=== PATIENT | male | born 1985 | race Caucasian/White ===

== ENCOUNTER 2024-05-06 19:21 | Emergency (ER) | payer MEDICAID, SELFPAY ==
--- NOTE | 2024-05-06 | ECG_ITS ---
Test Reason : cp Blood Pressure : */* mmHG Vent. Rate : 95 BPM Atrial Rate : 95 BPM P-R Int : 134 ms QRS Dur : 78 ms QT Int : 356 ms P-R-T Axes : 55 49 60 degrees QTcB Int : 447 ms Normal sinus rhythm Normal ECG No previous ECGs available Referred By: Generic ED Physician Electronically Signed By: Lex Meadows
[2024-05-06 19:27] VITALS: BP 128/72; PULSE 106; O2SAT 96
[2024-05-06 19:40] VITALS: BP 113/58; PULSE 97; RESP 18; TEMP 36.6; O2SAT 94
[2024-05-06 19:52] VITALS: BP 113/64; PULSE 89; RESP 14; O2SAT 94; BMI 26.1
[2024-05-06 20:12] VITALS: PULSE 96; RESP 18; O2SAT 96
[2024-05-06] MEDS: Albuterol Sulfate 5 MG, Albuterol Sulfate (0.083%) 2.5 MG 7.5 MG INHALE (20:12)
[2024-05-06 20:13] LABS: MANUAL DIFF FLAG NO
--- NOTE | 2024-05-06 20:14 | ED_ITS ---
HPI - SOB/Dyspnea General Chief Complaint: Dyspnea Stated Complaint: ASTHMA ATTACK, 91% RA PER EMS Time Seen by Provider: 05/06/24 19:40 Source: patient Mode of arrival: ambulatory Limitations: no limitations History of Present Illness ED Provider: HPI Narrative: Patient is from [place] with history of severe asthma goes to hospital almost 2- 3 times a week comes here as while at home all of a sudden noticed shortness a breath with wheezing took the treatment at home and EMS gave him another nebulizing treatment patient came here with obvious wheezing saturating 91% on room air Related Data Allergies Allergy/AdvReac Type Severity Reaction Status Date / Time aspirin Allergy Intermediate Rash Verified 05/06/24 20:00 Penicillins Allergy Intermediate Rash Verified 05/06/24 20:00 ketamine AdvReac Intermediate asthma Verified 05/06/24 20:00 ketorolac [From Toradol] AdvReac Intermediate asthma Verified 05/06/24 20:00 Review of Systems 2 Review of Systems: Yes all other systems are reviewed and are negative PMFSH Social History Social History Smoked in Last 30 Days: No Use of substances other than those prescribed or required for medical reasons: No Advance Directives: No Advance Directives Information Provided: No Physical Exam 2 Vital Signs: Vital Signs: Last Vital Signs Temp 97.9 F 05/06/24 22:38 Pulse 86 05/06/24 22:38 Resp 16 05/06/24 22:38 BP 113/58 L 05/06/24 22:38 Pulse Ox 97 05/06/24 22:38 O2 Del Method Room Air 05/06/24 22:38 BMI result Body Mass Index 26.1 Appearance: Alert. Oriented X3. Moderate respiratory distress Eyes: No pallor or icterus ENT: Pharynx normal. Oral Mucosa moist Neck: Normal inspection. Neck supple. CVS: Normal heart rate and rhythm. Pulses normal. Respiratory: Moderate respiratory distress. Equal air entry bilateral, bilateral wheezing no rales Abdomen: Soft and nontender. Bowel sounds are present, no mass palpable, no CVA tenderness Skin: Skin warm and dry. Normal skin color. Normal skin turgor. Extremities: No lower extremity edema. No calf tenderness Neuro: Oriented X 3. No motor deficit. Medications Administered Discontinued Medications Generic Name Dose Route Start Last Admin Trade Name Freq PRN Reason Stop Dose Admin Albuterol Sulfate 5 mg/ 7.5 mg 05/06/24 19:51 05/06/24 20:12 Albuterol Sulfate 2.5 mg INHALE 05/06/24 19:52 7.5 mg ONCE ONE Administration Magnesium Sulfate 2 gm in 50 mls @ 150 mls/hr 05/06/24 19:51 05/06/24 21:00 Magnesium Sulfate/H2o IV 05/06/24 20:10 Infused ONCE ONE Infusion Methylprednisolone Sodium Succinate 125 mg 05/06/24 19:51 05/06/24 20:33 Methylprednisolone Sod Succ 125 Mg/2 Ml Vial IVPUSH 05/06/24 19:52 125 mg ONCE ONE Administration Medical Decision Making Medical Decision Making [facility] Narrative: Patient has acute asthma attack improved after DuoNeb treatment Solu-Medrol and magnesium was given patient does have prednisone at home continue that at home discharge patient home saturating 96% at room air Differential Diagnosis Differential Diagnoses: The differential diagnosis associated with the presentation includes Lab Data [facility] Lab Attestation statement: I reviewed the patient's lab results. 05/06/24 20:10 05/06/24 20:10 Labs: Lab Results 05/06/24 Range/Units 20:10 WBC 6.9 (4.8-10.8) X10*3/uL RBC 3.67 L (4.60-5.80) X10*6/uL Hgb 9.6 L (14.0-18.0) g/dl Hct 29.9 L (42.0-52.0) % MCV 81.5 (80.0-98.0) fL MCH 26.2 L (27.0-33.0) pg MCHC 32.1 (31.0-36.0) g/dl RDW 14.6 (11.0-16.0) % Plt Count 223 (160-400) X10*3/uL MPV 9.3 L (9.4-12.4) fL Immature Gran % (Auto) 0.4 (0.0-0.4) % Neut % (Auto) 45.1 (45-73) % Lymph % (Auto) 31.8 (20-40) % [place] % (Auto) 9.3 (2-11) % Eos % (Auto) 12.5 H (0-4) % Baso % (Auto) 0.9 (0-2) % Lymph # (Auto) 2.2 (1.2-4.9) X10*3/uL [place] # (Auto) 0.6 (0.1-1.2) X10*3/uL Eos # (Auto) 0.9 H (0.0-0.4) X10*3/uL Baso # (Auto) 0.1 (0.0-0.2) X10*3/uL Abs Immat Gran (auto) 0.03 (0.00-0.03) X10*3/uL Absolute Neuts (auto) 3.1 (2.0-8.3) x10*3/uL Absolute Nucleated RBC 0.000 (0.0-0.012) X10*3/uL Nucleated RBC % (auto) 0.0 (0.0-0.2) /100WBC Sodium 142 (135-145) mmol/L Potassium 3.9 (3.3-5.1) mmol/L Chloride 109 H (96-108) mmol/L Carbon Dioxide 25 (22-29) mmol/L Anion Gap 12 (12-20) BUN 19 H (9-16) mg/dL Creatinine 0.90 (0.5-1.4) mg/dL Estim Creat Clear Calc 129.3 Estimated GFR > 60 Random Glucose 104 (60-115) mg/dL Calcium 8.6 (8.4-10.2) mg/dL Total Bilirubin 0.2 (0.0-1.0) mg/dL AST 23 (5-37) U/L ALT 44 H (0-40) U/L Alkaline Phosphatase 52 (39-117) U/L Total Protein 6.1 L (6.5-8.0) g/dL Albumin 3.5 (3.5-5.0) g/dL Discharge Plan Discharge Clinical Impression: Asthma with exacerbation Patient Disposition: Home, Self-Care Instructions: Asthma (ED) Additional Instructions: Continue to use your nebulizer and inhaler as advised Prednisone as prescribed Follow up with your PCP Interventions: ED Discharge Assessment Last Done: 05/06/24 22:38 Discharge Date/Time: 05/06/24 22:25 Print Language: Occitan
[2024-05-06 20:25] LABS: Basophils Absolute Auto 0.1 X10*3/uL (0.0-0.2); Basophils Percent Auto 0.9 % (0-2); Eosinophils Absolute Auto 0.9 X10*3/uL (0.0-0.4); Eosinophils Percent Auto 12.5 % (0-4); Hematocrit 29.9 % (42.0-52.0); Hemoglobin 9.6 g/dl (14.0-18.0); Imm Gran Abs Auto 0.03 X10*3/uL (0.00-0.03); Imm Gran Pct Auto 0.4 % (0.0-0.4); Lymphocytes Absolute Auto 2.2 X10*3/uL (1.2-4.9); Lymphocytes Percent Auto 31.8 % (20-40); Mean Corpuscular HGB Conc 32.1 g/dl (31.0-36.0); Mean Corpuscular Hemoglobin 26.2 pg (27.0-33.0); Mean Corpuscular Volume 81.5 fL (80.0-98.0); Mean Platelet Volume 9.3 fL (9.4-12.4); Monocytes Absolute Auto 0.6 X10*3/uL (0.1-1.2); Monocytes Percent Auto 9.3 % (2-11); Neutrophils Absolute Auto 3.1 x10*3/uL (2.0-8.3); Neutrophils Percent Auto 45.1 % (45-73); Platelet Count 223 X10*3/uL (160-400); Red Blood Count 3.67 X10*6/uL (4.60-5.80); Red Cell Distribution Width 14.6 % (11.0-16.0); White Blood Count 6.9 X10*3/uL (4.8-10.8)
[2024-05-06] MEDS: methylPREDNISolone Sod Succ 125 MG/2 ML VIAL IVPUSH (20:33)
[2024-05-06 20:34] LABS: Alanine Aminotransferase 44 U/L (0-40); Albumin Level 3.5 g/dL (3.5-5.0); Anion Gap 12 (12-20); Aspartate Amino Transferase 23 U/L (5-37); Bilirubin Total 0.2 mg/dL (0.0-1.0); Blood Urea Nitrogen 19 mg/dL (9-16); Calcium 8.6 mg/dL (8.4-10.2); Carbon Dioxide 25 mmol/L (22-29); Chloride 109 mmol/L (96-108); Creatinine Clr Calc Pharmacy 129.3; Estimated Glomerular Filt Rate > 60; Glucose Random 104 mg/dL (60-115); Potassium 3.9 mmol/L (3.3-5.1); Sodium 142 mmol/L (135-145); Total Protein 6.1 g/dL (6.5-8.0)
[2024-05-06] MEDS: Magnesium Sulfate/H2O 2 GM/50 ML PIGGYBACK IV (20:34)
[2024-05-06 21:03] LABS: Alkaline Phosphatase 52 U/L (39-117)
[2024-05-06 22:03] VITALS: BP 113/58; PULSE 86; RESP 16; TEMP 36.6; O2SAT 97
[2024-05-06 22:38] VITALS: BP 113/58; PULSE 86; RESP 16; TEMP 36.6; O2SAT 97
== END 2024-05-06 22:25 | disposition home or self-care (01) ==
PROVIDERS: Emergency Provider Internal Medicine
DX: J45.901 Unspecified asthma with (acute) exacerbation (principal)
CPT/HCPCS: 36415; 80053; 85025; 93005; 94640; 96365; 96375; 99285; J2919; J3475

== ENCOUNTER → 2024-05-06 19:37 | Outpatient (BNV) | payer MEDICAID, SELFPAY | PROVIDERS: Emergency Provider Internal Medicine; Visit Provider Internal Medicine Cardiovascular Disease | DX: R07.9 Chest pain, unspecified (principal) | CPT/HCPCS: 93010 ==

== ENCOUNTER 2024-05-08 19:37 | Emergency (ER) | payer MEDICAID, SELFPAY ==
--- NOTE | ~2024-05-08 | CT_ITS ---
CLINICAL HISTORY: Painless hematuria CT abdomen and pelvis with contrast Comparison: None Findings: There is partial visualization of a large hiatal hernia containing the majority of the stomach with partial visualization of a small amount of adjacent compressive left lower lobe atelectasis. The visualized portion of the right lung base appears clear. Gallstone identified within the gallbladder lumen. No CT evidence for acute cholecystitis. The solid organs are within normal limits. No hydronephrosis or hydroureter. Small nonobstructing right renal calculus present. No bowel obstruction, pneumoperitoneum, or pneumatosis. Moderate proximal colonic stool burden at the ascending colon. Small calcification identified within the prostate gland to the left of the midline. No bladder wall thickening. Normal appendix. No acute fracture visualized. IMPRESSION: 1. No acute inflammatory process identified within the abdomen or pelvis. 2. Small nonobstructing right renal calculus. No hydronephrosis. 3. Partial visualization of a large hiatal hernia containing the majority of the stomach. 4. Moderate proximal colonic stool burden. No bowel obstruction. 5. Cholelithiasis. No CT evidence for acute cholecystitis. This document has been electronically signed by: Sonny Ferreira MD on 05/09/2024 03:19:15
[2024-05-08 19:39] VITALS: BP 128/88; PULSE 88; O2SAT 95
[2024-05-08 20:02] VITALS: BP 112/59; PULSE 83; RESP 18; TEMP 37; O2SAT 97; BMI 26.5
--- NOTE | 2024-05-08 20:05 | ED_ITS ---
HPI - General Adult General Chief complaint: Urogenital-Male Stated complaint: blood in urine Time Seen by Provider: 05/09/24 01:57 Source: patient Mode of arrival: EMS Limitations: no limitations History of Present Illness ED Provider: Dr. Mauro Mobley HPI narrative: 38-year-old male with a history of asthma and kidney stones who presents emergency department for evaluation of painless hematuria. Patient states that on 05/06/2024 he had red colored urine. He states that the next day he then had dark urine with blood clots. He states that he had a pressure-like sensation when he Peed and urinary frequency but no dysuria. He states he was not been sexually active and he had no penile discharge. Patient states he was had kidney stones in the past but has not experienced any flank or abdominal pain with his hematuria. The patient denied fever chills night sweats or weight loss. He states he was had weight gain. 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 He states that he was at a sober house for 21 days in his currently in a new sober house that is in the [facility]. Related Data Allergies Allergy/AdvReac Type Severity Reaction Status Date / Time aspirin Allergy Intermediate Rash Verified 05/08/24 20:04 Penicillins Allergy Intermediate Rash Verified 05/08/24 20:04 ketamine AdvReac Intermediate asthma Verified 05/08/24 20:04 ketorolac [From Toradol] AdvReac Intermediate asthma Verified 05/08/24 20:04 Review of Systems 2 Review of Systems: Yes all other systems are reviewed and are negative [facility] Past Medical History [facility] Narrative: Social history: He does smoke cigarettes. He denies alcohol use. He states that he is in recovery from crack cocaine use. Social History Social History Unable to assess alcohol history related to: Unknown Smoked in Last 30 Days: Yes Advance Directives: No Advance Directives Information Provided: No Physical Exam ED Vital Signs: Vital Signs - 24 hr 05/08/24 20:02 05/08/24 23:48 05/09/24 01:15 Temperature 98.6 F 97.8 F 97.8 F Pulse Rate 83 82 82 Respiratory Rate 18 16 16 Blood Pressure 112/59 L 107/59 L 107/59 L Pulse Oximetry 97 97 97 Oxygen Delivery Method Room Air Room Air Room Air BMI result Body Mass Index 26.5 Vital signs were normal Exam: General: Awake, alert in no distress Head: Normocephalic, atraumatic EENT: PERRL, Lids normal, sclera normal, conjunctiva normal, nose normal , ears normal, throat without erythema or exudates Neck: Supple, no adenopathy Lung: breath sounds symmetric, no wheezing, rales or rhonchi Chest: symmetric movement, nontender Heart: regular rate and rhythm, normal S1, S2 no murmurs or rubs Abdomen: soft, non-tender, nondistended, normal bowel sounds Back: no vertebral tenderness, no CVAT Extremities: no deformities, moves all extremities symmetrically Neuro: Awake, alert, oriented, normal speech, cranial nerves intact, moves all extremities symmetrically Psych: Pleasant, cooperative Course Course Course Narrative: RME, this is a rapid medical exam performed by Gibson Alvarez please refer to primary provider for complete H&P- 38-year-old male presents for evaluation of blood in his urine which started 3 days ago. He denies any significant clots. Plan for labs, urinalysis Medications Administered Discontinued Medications Generic Name Dose Route Start Last Admin Trade Name Freq PRN Reason Stop Dose Admin Iohexol 85 ml 05/09/24 02:57 05/09/24 02:57 Iohexol 350 Mg/Ml 100 Ml Infus..Btl IV 05/09/24 02:58 85 ml ONCE ONE Administration Medical Decision Making Medical Decision Making [facility] Narrative: 38-year-old male with a history of asthma and kidney stones who presents emergency department for evaluation of painless, gross hematuria x2 days with frequency and pressure with urination but no dysuria. Patient has had no penile discharge. He was had no concerning systemic symptoms in his actually gained weight since being in recovery. Vital signs were normal. Physical examination was unremarkable Differential diagnosis: ?Includes but is not limited to kidney stones, bladder stones, renal cancer, bladder cancer Course: 02:21 My interpretation patient's laboratory evaluation is as follows: WBC was normal 7600. Normocytic anemia with an H&H of 99 and 31.5. Urinalysis was negative. I ordered a CT abdomen pelvis with IV contrast to evaluate the patient for possible malignancy versus kidney stones. 04:[address] scan of the abdomen pelvis with IV contrast did not reveal a clear cause for the patient's hematuria. I did discuss this with the patient. The patient will be referred to our urologist for further evaluation Admission/Observation Consideration of admission/observation: Escalation of care including admission/observation considered (Yes) Lab Data 05/08/24 20:50 05/08/24 20:50 Labs: Lab Results 05/08/24 Range/Units 20:50 WBC 7.6 (4.8-10.8) X10*3/uL RBC 3.82 L (4.60-5.80) X10*6/uL Hgb 9.9 L (14.0-18.0) g/dl Hct 31.5 L (42.0-52.0) % MCV 82.5 (80.0-98.0) fL MCH 25.9 L (27.0-33.0) pg MCHC 31.4 (31.0-36.0) g/dl RDW 14.6 (11.0-16.0) % Plt Count 273 (160-400) X10*3/uL MPV 9.2 L (9.4-12.4) fL Immature Gran % (Auto) 0.4 (0.0-0.4) % Neut % (Auto) 66.9 (45-73) % Lymph % (Auto) 21.5 (20-40) % [place] % (Auto) 8.0 (2-11) % Eos % (Auto) 2.4 (0-4) % Baso % (Auto) 0.8 (0-2) % Lymph # (Auto) 1.6 (1.2-4.9) X10*3/uL [place] # (Auto) 0.6 (0.1-1.2) X10*3/uL Eos # (Auto) 0.2 (0.0-0.4) X10*3/uL Baso # (Auto) 0.1 (0.0-0.2) X10*3/uL Abs Immat Gran (auto) 0.03 (0.00-0.03) X10*3/uL Absolute Neuts (auto) 5.1 (2.0-8.3) x10*3/uL Absolute Nucleated RBC 0.000 (0.0-0.012) X10*3/uL Nucleated RBC % (auto) 0.0 (0.0-0.2) /100WBC Sodium 140 (135-145) mmol/L Potassium 4.1 (3.3-5.1) mmol/L Chloride 110 H (96-108) mmol/L Carbon Dioxide 27 (22-29) mmol/L Anion Gap 7 L (12-20) BUN 17 H (9-16) mg/dL Creatinine 0.85 (0.5-1.4) mg/dL Estim Creat Clear Calc 137.0 Estimated GFR > 60 Random Glucose 124 H (60-115) mg/dL Calcium 8.8 (8.4-10.2) mg/dL Total Bilirubin 0.2 (0.0-1.0) mg/dL AST 18 (5-37) U/L ALT 43 H (0-40) U/L Alkaline Phosphatase 52 (39-117) U/L Total Protein 6.5 (6.5-8.0) g/dL Albumin 3.9 (3.5-5.0) g/dL Urine Color Yellow Urine Appearance Cloudy Urine pH 7.5 (5.0-9.0) Ur Specific [place] 1.020 (1.005-1.025) Urine Protein Negative (Neg-Trace) mg/dL Urine Glucose (UA) Negative (Negative) mg/dL Urine Ketones Negative (Negative) mg/dL Urine Blood Negative (Negative) Urine Nitrite Negative (Negative) Ur Leukocyte Esterase Negative (Negative) Radiology Impression Discussion of test interpretation with radiology: I have reviewed the radiologist's reading. Radiologist Impression: CT abdomen and pelvis with contrast Comparison: None Findings: There is partial visualization of a large hiatal hernia containing the majority of the stomach with partial visualization of a small amount of adjacent compressive left lower lobe atelectasis. The visualized portion of the right lung base appears clear. Gallstone identified within the gallbladder lumen. No CT evidence for acute cholecystitis. The solid organs are within normal limits. No hydronephrosis or hydroureter. Small nonobstructing right renal calculus present. No bowel obstruction, pneumoperitoneum, or pneumatosis. Moderate proximal colonic stool burden at the ascending colon. Small calcification identified within the prostate gland to the left of the midline. No bladder wall thickening. Normal appendix. No acute fracture visualized. IMPRESSION: 1. No acute inflammatory process identified within the abdomen or pelvis. 2. Small nonobstructing right renal calculus. No hydronephrosis. 3. Partial visualization of a large hiatal hernia containing the majority of the stomach. 4. Moderate proximal colonic stool burden. No bowel obstruction. 5. Cholelithiasis. No CT evidence for acute cholecystitis. This document has been electronically signed by: Sonny Ferreira MD on 05/09/2024 03:19:15 Discharge Plan Discharge Clinical Impression: Painless hematuria Patient Disposition: Home, Self-Care Instructions: Hematuria (ED) Additional Instructions: Your blood work revealed mild anemia which is not related to the blood in your urine. Your kidney function was normal. Your urine test today revealed no blood and no evidence for an infection. The CT scan of your abdomen pelvis with IV contrast did not reveal a clear cause for the blood in your urine. There was no mass of your kidney or large mass in the bladder that could be seen by the radiologist. I want you to follow-up with our urologist on-call for re-evaluation to determine if you need any further studies. Call them tomorrow to try to make a follow-up appointment within 1-2 weeks. Continue taking your other medications as prescribed by your providers Please return to the emergency department if your symptoms get worse or if you develop any symptoms that are concerning to you. Referrals: Hanh Westbrook MD [Physician] - 2 weeks (Painless hematuria, CT abdomen pelvis IV contrast was negative.) Print Language: Kittitian
--- NOTE | 2024-05-08 20:51 | MHC.EDTECH ---
Patient brought into triage area,labs and urine collected and sent to a lab.
--- NOTE | 2024-05-08 20:54 | MHC.EDTECH ---
Patient brought into triage urine sample collected and sent to lab.
[2024-05-08 20:58] LABS: MANUAL DIFF FLAG NO
[2024-05-08 21:00] LABS: Basophils Absolute Auto 0.1 X10*3/uL (0.0-0.2); Basophils Percent Auto 0.8 % (0-2); Eosinophils Absolute Auto 0.2 X10*3/uL (0.0-0.4); Eosinophils Percent Auto 2.4 % (0-4); Hematocrit 31.5 % (42.0-52.0); Hemoglobin 9.9 g/dl (14.0-18.0); Imm Gran Abs Auto 0.03 X10*3/uL (0.00-0.03); Imm Gran Pct Auto 0.4 % (0.0-0.4); Lymphocytes Absolute Auto 1.6 X10*3/uL (1.2-4.9); Lymphocytes Percent Auto 21.5 % (20-40); Mean Corpuscular HGB Conc 31.4 g/dl (31.0-36.0); Mean Corpuscular Hemoglobin 25.9 pg (27.0-33.0); Mean Corpuscular Volume 82.5 fL (80.0-98.0); Mean Platelet Volume 9.2 fL (9.4-12.4); Monocytes Absolute Auto 0.6 X10*3/uL (0.1-1.2); Neutrophils Absolute Auto 5.1 x10*3/uL (2.0-8.3); Neutrophils Percent Auto 66.9 % (45-73); Platelet Count 273 X10*3/uL (160-400); Red Blood Count 3.82 X10*6/uL (4.60-5.80); Red Cell Distribution Width 14.6 % (11.0-16.0); White Blood Count 7.6 X10*3/uL (4.8-10.8)
[2024-05-08 21:02] LABS: Appearance Urine Cloudy; Color Urine Yellow; Glucose Urine UA Negative (Negative); Leukocyte Esterase Urine Negative (Negative); Nitrite Urine Negative (Negative); PH 7.5 (5.0-9.0); Urine Blood Negative (Negative); Urine Ketones Negative (Negative); Urine Protein Negative (Neg-Trace)
[2024-05-08 21:15] LABS: Albumin Level 3.9 g/dL (3.5-5.0); Alkaline Phosphatase 52 U/L (39-117); Anion Gap 7 (12-20); Aspartate Amino Transferase 18 U/L (5-37); Bilirubin Total 0.2 mg/dL (0.0-1.0); Blood Urea Nitrogen 17 mg/dL (9-16); Calcium 8.8 mg/dL (8.4-10.2); Carbon Dioxide 27 mmol/L (22-29); Chloride 110 mmol/L (96-108); Estimated Glomerular Filt Rate > 60; Glucose Random 124 mg/dL (60-115); Potassium 4.1 mmol/L (3.3-5.1); Sodium 140 mmol/L (135-145); Total Protein 6.5 g/dL (6.5-8.0)
[2024-05-08 21:27] LABS: Alanine Aminotransferase 43 U/L (0-40)
[2024-05-08 23:48] VITALS: BP 107/59; PULSE 82; RESP 16; TEMP 36.6; O2SAT 97
[2024-05-09 01:15] VITALS: BP 107/59; PULSE 82; RESP 16; TEMP 36.6; O2SAT 97
[2024-05-09] MEDS: iohexoL 350 MG/ML 100 ML INFUS..BTL 85 ML IV (02:57)
[2024-05-09 04:26] VITALS: BP 108/61; PULSE 72; RESP 18; TEMP 36.6; O2SAT 98
[2024-05-09 04:44] VITALS: BP 108/61; PULSE 72; RESP 18; TEMP 36.6; O2SAT 98
== END 2024-05-09 04:45 | disposition home or self-care (01) ==
PROVIDERS: Emergency Provider Emergency Medicine Emergency Medical Services; PCP Nurse Practitioner Family
DX: N20.0 Calculus of kidney (principal); R31.9 Hematuria, unspecified; R35.0 Frequency of micturition; Z79.899 Other long term (current) drug therapy; Z87.442 Personal history of urinary calculi
CPT/HCPCS: 36415; 74177; 80053; 81003; 85025; 99284; Q9967

== ENCOUNTER → 2024-05-09 02:15 | Outpatient (BNV) | payer MEDICAID, SELFPAY | PROVIDERS: Emergency Provider Emergency Medicine Emergency Medical Services; PCP Nurse Practitioner Family; Visit Provider Radiology Diagnostic Radiology | DX: N20.0 Calculus of kidney (principal); K80.20 Calculus of gallbladder without cholecystitis without obstruction; K56.41 Fecal impaction; K44.9 Diaphragmatic hernia without obstruction or gangrene | CPT/HCPCS: 74177 ==

== ENCOUNTER 2024-05-21 10:23 | Emergency (ER) | payer MEDICAID, SELFPAY ==
--- NOTE | ~2024-05-21 | XR_ITS ---
EXAMINATION: XR CHEST CLINICAL INFORMATION: sob, asthma COMPARISON: None available. TECHNIQUE: 2 views of the chest were obtained. FINDINGS: Large hiatal hernia overlapping the heart silhouette. No gross consolidation, pleural effusion or pneumothorax. Mild multilevel thoracic spondylosis. XR/XR chest 2V IMPRESSION: Large hiatal hernia. No gross acute airspace disease. Electronically signed by: Gulshan Bowles MD 05/21/2024 11:[address] [facility]
[2024-05-21 10:35] VITALS: BP 112/67; PULSE 85; O2SAT 100; BMI 30.1
[2024-05-21 10:41] VITALS: BP 112/53; PULSE 86; RESP 18; TEMP 36.4; O2SAT 96
--- NOTE | 2024-05-21 10:42 | ECG_ITS ---
Test Reason : sob Blood Pressure : */* mmHG Vent. Rate : 82 BPM Atrial Rate : 82 BPM P-R Int : 142 ms QRS Dur : 82 ms QT Int : 372 ms P-R-T Axes : 47 38 51 degrees QTcB Int : 434 ms Normal sinus rhythm Normal ECG When compared with ECG of 06-May-2024 19:37, No significant change was found Referred By: Gema Anton Electronically Signed By: BENTLEY ALFRED
[2024-05-21] MEDS: Albuterol Sulfate 2.5 MG, Albuterol/Iprat 2.5/0.5MG 3 ML 3 ML INHALE (11:25)
--- NOTE | 2024-05-21 11:36 | ED_ITS ---
HPI - SOB/Dyspnea General Chief Complaint: Dyspnea Stated Complaint: SOB,H/O ASTHMA,ON DUONEB NOW PER EMS Time Seen by Provider: 05/21/24 10:39 Source: patient, EMS, RN notes reviewed and old records reviewed Mode of arrival: EMS History of Present Illness ED Provider: Gema Anton PA-C HPI Narrative: 38-year-old male with a past medical history of asthma presenting [facility] complaining of cough and SOB times this morning. Admits symptoms are similar to prior asthma attacks in the past. Reports compliance with inhalers at home. Denies chest pain, palpitations, fever, chills, sick c ontacts, travel, abdominal pain. Patient received DuoNeb and 125 mg of IV Solu- Medrol by EMS [employer]. Related Data Allergies Allergy/AdvReac Type Severity Reaction Status Date / Time aspirin Allergy Intermediate Rash Verified 05/21/24 10:37 Penicillins Allergy Intermediate Rash Verified 05/21/24 10:37 ketamine AdvReac Intermediate asthma Verified 05/21/24 10:37 ketorolac [From Toradol] AdvReac Intermediate asthma Verified 05/21/24 10:37 Review of Systems Review of Systems: Yes all other systems are reviewed and are negative Constitutional: Constitutional: Reports as per HPI [facility] Past Medical History Attestation statement: The following information was validated with the patient. Source: old records reviewed Social History Social History Unable to assess alcohol history related to: Unknown Advance Directives: No Advance Directives Information Provided: Yes Do you have a plan to hurt others: No Plan Physical Exam Vital Signs: Vital Signs: Last Vital Signs Temp 97.6 F 05/21/24 10:41 Pulse 86 05/21/24 10:41 Resp 18 05/21/24 10:41 BP 112/53 L 05/21/24 10:41 Pulse Ox 96 05/21/24 10:41 O2 Del Method Room Air 05/21/24 10:41 BMI result Body Mass Index 30.1 Const: General: cooperative, healthy appearing and no acute distress Orientation/consciousness: patient oriented x3 Limitations: no limitations HEENT: Head: Yes normal to inspection and Yes atraumatic Ears: hearing grossly normal bilaterally General nose exam: Normal external nose present Face and sinus: Yes normal facial exam Eyes: General: appearance normal, both eyes and all related structures EOM: EOMs intact bilaterally Neck: Neck: Yes normal visual inspection and Yes no meningeal signs Resp: Effort & Inspection: normal respiratory effort and no respiratory distress Auscultation: clear to auscultation bilaterally, no crackles, no rales, no rhonchi and no wheezes Cardio: Rate: regular rate Heart sounds: S1 normal heart sound present and S2 normal heart sound present Skin: Rashes: no rashes Wounds: no wounds Neuro: General: patient oriented x3, tone normal and no meningeal signs Cranial nerves: Yes CN's II-XII intact bilaterally Gait exam (Neuro): Normal gait present Extrem: General: Yes normal to inspection and Yes no pedal edema Course Course Course Narrative: XR chest 2V IMPRESSION: Large hiatal hernia. No gross acute airspace disease. > COVID/flu/RSV negative -lungs CTA Results discussed with patient including worrisome signs and symptoms and strict return precautions, and when to return to the emergency department. They verbalized understanding and feel safe for discharge at this time. Medications Administered Discontinued Medications Generic Name Dose Route Start Last Admin Trade Name Freq PRN Reason Stop Dose Admin Albuterol Sulfate 2.5 mg/ 0 mg 05/21/24 11:20 05/21/24 11:25 Albuterol/Ipratropium 3 ml INHALE 05/21/24 11:21 1 dose ONCE ONE Administration Medical Decision Making Medical Decision Making [facility] Narrative: 38-year-old male with a past medical history of asthma presenting [facility] the ED [facility] complaining of cough and SOB times this morning. On exam vital signs stable, NAD, nontoxic appearing, talking in complete sentences, no respiratory distress, no accessory muscle use, lungs CTA. No pedal edema. Concern for asthma exacerbation vs viral illness vs pneumonia or bronchitis. Lower suspicion for ACS/PE Plan: EKG, CXR, viral testing, ED bronch protocol. Please refer to course for remaining clinical decision making, interpretation of labs/imaging results, and discussions with consultants and/or family members. Differential Diagnosis Differential Diagnoses: The differential diagnosis associated with the presentation includes As above Admission/Observation Consideration of admission/observation: Escalation of care including admission/observation considered Lab Data [facility] Lab Attestation statement: I reviewed the patient's lab results. Labs: Lab Results 05/21/24 Range/Units 11:10 Influenza Type A (PCR) NEGATIVE (Negative) Influenza Type B (PCR) NEGATIVE (Negative) RSV RNA Qual (PCR) NEGATIVE (Negative) SARS-CoV-2 RNA (RT-PCR) NEGATIVE (Negative) Independent Interpretation I performed an independent interpretation of an: EKG (My interpretation EKG normal sinus rhythm rate of 82. [place] interval 142. QTC 434. No STEMI) and Plain X-Ray Radiology Impression Discussion of test interpretation with radiology: I have reviewed the radiologist's reading. Independent Historian Clinical information obtained from an independent historian. History obtained from or confirmed by: EMS External Record Review External record reviewed: Inpatient record, Office record, Outpatient record, Prior outpatient labs, Prior outpatient radiology, Primary care record and Outside ED record Tests considered The following testing was considered but not selected: As above Prescription Management I considered prescription management with: Other Chronic Conditions Patient?s care impacted by: Other Social Determinants Patient?s care significantly limited by Social Determinants of Health including: Inadequate housing, Problems related to primary support group and Other Social Determinant of Health Discharge Plan Discharge Clinical Impression: Asthma with exacerbation Patient Disposition: Home, Self-Care Print Language: Maori
[2024-05-21 11:58] LABS: Influenza A PCR NEGATIVE (Negative); Influenza B PCR NEGATIVE (Negative); Resp Syncy Virus RNA Qual PCR NEGATIVE (Negative); SARS COV2 PCR INHOUSE NEGATIVE (Negative)
[2024-05-21 12:25] VITALS: BP 114/72; PULSE 101; RESP 18; TEMP 36.9; O2SAT 96
[2024-05-21 12:27] VITALS: BP 114/72; PULSE 101; RESP 18; TEMP 36.9; O2SAT 96
== END 2024-05-21 12:28 | disposition home or self-care (01) ==
PROVIDERS: Physician Assistant; Emergency Provider Emergency Medicine Emergency Medical Services; PCP Nurse Practitioner Adult Health
DX: J45.901 Unspecified asthma with (acute) exacerbation (principal); R06.02 Shortness of breath; Z03.818 Encounter for observation for suspected exposure to other biological agents ruled out; R05.9 Cough, unspecified
CPT/HCPCS: 0241U; 71046; 93005; 99283; 99284

== ENCOUNTER → 2024-05-21 10:39 | Outpatient (BNV) | payer MEDICAID, SELFPAY | PROVIDERS: Emergency Provider Emergency Medicine Emergency Medical Services; PCP Nurse Practitioner Adult Health; Visit Provider Radiology Diagnostic Radiology | DX: R06.02 Shortness of breath (principal) | CPT/HCPCS: 71046 ==

== ENCOUNTER → 2024-05-21 10:42 | Outpatient (BNV) | payer MEDICAID, SELFPAY | PROVIDERS: Emergency Provider Emergency Medicine Emergency Medical Services; PCP Nurse Practitioner Adult Health; Visit Provider Internal Medicine | DX: R06.02 Shortness of breath (principal) | CPT/HCPCS: 93010 ==